=== PATIENT | male | born 1950 | race Caucasian/White ===

== ENCOUNTER 2018-07-30 06:53 | Inpatient (IN) ==
--- NOTE | 2018-07-18 08:48 | PAT Medication Instructions ---
Medication Instructions Date of Service July 18, 2018 Home Medications allopurinol 200 mg PO QAM biotin 10,000 mcg PO QAM cetirizine 10 mg PO DAILY PRN cholecalciferol (vitamin D3) [Vitamin D3] 5,000 unit PO QAM fenofibrate 160 mg PO QAM gabapentin 300 mg PO TID ibuprofen [Advil] 400 mg PO QID PRN multivitamin 1 tab PO QAM potassium 99 mg PO QAM ranitidine HCl 150 mg PO DAILY PRN ASK your surgeon for instructions ibuprofen [Advil] 400 mg PO QID PRN STOP taking 2 weeks before surgery (or as soon as possible if surgery is within 2 weeks) biotin 10,000 mcg PO QAM STOP taking 24 hours before surgery fenofibrate 160 mg PO QAM DO NOT take the morning of surgery cetirizine 10 mg PO DAILY PRN cholecalciferol (vitamin D3) [Vitamin D3] 5,000 unit PO QAM multivitamin 1 tab PO QAM potassium 99 mg PO QAM ranitidine HCl 150 mg PO DAILY PRN Take morning of surgery With a small sip of water, OTHERWISE NOTHING TO EAT OR DRINK AFTER MIDNIGHT: allopurinol 200 mg PO QAM gabapentin 300 mg PO TID Take evening before surgery gabapentin 300 mg PO TID Other Notes If you have any questions please call us at [phone] or [phone] or [phone] or [phone]
--- NOTE | 2018-07-18 14:29 | Anesthesiology Consultation ---
Date of Service July 18, 2018 Assessment & Plan (1) Encounter for pre-operative examination: Chest CT noted coronary artery calcification and generalized small airway disease with bronchial wall thickening. Reviewed with Dr. Sal; given patient's good functional status and PMHX, okay to proceed with surgery as scheduled without further testing/evaluation. Patient will followup postoperatively with PCP regarding chest CT findings at their discretion (PCP aware/has report). Chart Review Chart Review: Acceptable Risk for Surgery and Patient seen in Pre Admission Testing Teaching & Discussion Pre-Anesthesia Teaching/Discussion Notes: Instructed NPO after midnight before surgery,except medications with 15 cc of water. Medication instructions provided according to the PAT guidelines. History Surgery Operation Date: 07/30/18 09:05 Proposed Procedures p L3-S1 Removal of Hardware, L2-L3 Decompression and Fusion, Spinal Cord Monitoring - Matteo Valladares, Height/Weight Height: 5 ft 6.5 in Weight: 88.5 kg Allergies Allergy/AdvReac Type Severity Reaction Status Date / Time pollen extracts Allergy Unknown DUST, Verified 07/17/18 14:57 TREES-ITCHY EYES AND RUNNY NOSE Medications Home Medications Medication Instructions Recorded Confirmed Last Taken allopurinol 200 mg PO QAM 07/17/18 07/17/18 Unknown biotin 10,000 mcg PO QAM 07/17/18 07/17/18 Unknown cetirizine 10 mg PO DAILY PRN 07/17/18 07/17/18 Unknown cholecalciferol (vitamin D3) 5,000 unit PO QAM 07/17/18 07/17/18 Unknown [Vitamin D3] fenofibrate 160 mg PO QAM 07/17/18 07/17/18 Unknown gabapentin 300 mg PO TID 07/17/18 07/17/18 Unknown ibuprofen [Advil] 400 mg PO QID PRN 07/17/18 07/17/18 Unknown multivitamin 1 tab PO QAM 07/17/18 07/17/18 Unknown potassium 99 mg PO QAM 07/17/18 07/17/18 Unknown ranitidine HCl 150 mg PO DAILY PRN 07/17/18 07/17/18 Unknown Past Medical History Medical History Chronic back pain B/L LE RADICULOPATHY Gout Graves disease HX RESOLVED S/P TREATMENT; EUTHYROID X 9+ YEARS PER PATIENT Hyperlipidemia Obesity Exercise / Class Metabolic Activity II 4-5 Yardwork/Stairs/Walk up hill Past Family History Family History Grandmother (Maternal) Family history of diabetes mellitus Mother Family history of diabetes mellitus Past Surgical History Surgical History Fusion of spine LUMBAR History of appendectomy History of arthroscopy RIGHT SHOULDER History of colonoscopy History of hand surgery R/L TRIGGER THUMBS Past Anesthesia History No Hx of Anesthesia Complications and No Family Hx of Anesthesia Complications History of PONV No Hx of PONV and No Hx of Motion Sickness Social History Smoking Status: Former smoker Do You Dip or Chew Tobacco: No Smoking End Date: QUIT 17 YEARS AGO Hx Alcohol Use: Yes Alcohol type: beer alcohol intake frequency: a few times a week Hx Substance Use: No Review of Systems Patient denies chest pain, shortness of breath, dyspnea on exertion, cough, wheezing, palpitations. Physical Exam Vital Signs VITALS BP 119/71 P 68 TEMP 98.5 SP02 97%RA RESP 18 PHYSICAL Full neck and c-spine range of motion. Full TMJ range of motion. TMD 3 finger breaths Mallampati Score 2 Dentition: partial upper Lungs: clear throughout to auscultation Cardiac: regular rate and rhythm, no murmurs noted Spine: normal Carotid arteries: negative bruit Extremities: no edema Testing Laboratory Results 07/18/18 14:40 07/18/18 14:40 07/18/18 07/18/18 14:40 14:40 PT 10.5 INR 1.0 APTT 22.9 Urine Color Yellow Urine Appearance Clear Urine pH 7.0 Ur Specific [place] 1.012 Urine Protein Negative Urine Glucose (UA) Negative Urine Ketones Negative Urine Nitrite Negative Ur Leukocyte Esterase Negative 07/18/18 T&S A+Ab- Electrocardiogram Date: 07/18/18 Findings: + NSR @ (62) Chest X-Ray Date: 07/18/18 2.1 cm right suprahilar density. Artifact is favored however a pulmonary nodule cannot be excluded and a chest CT is recommended. No acute cardiopulmonary findings. (subsequent chest CT done 07/24/18*) Other Testing Chest CT: 07/24/18: no suspicious lung nodule or mass. Hepatic steatosis noted. Coronary artery calcification. RUL scar or atelectasis. There is generalized small airway disease with bronchial wall thickening.
--- NOTE | 2018-07-18 15:00 | XRay Report ---
XR chest Pre-admission PA/Lat CLINICAL HISTORY: Preoperative evaluation. COMPARISON STUDY: Chest radiograph October 03, 2014. FINDINGS: Lung volumes are normal. There is no consolidation or evidence for pulmonary edema. Cardiac size is normal. Mediastinal contours are normal. There is no pneumothorax or pleural effusion. A 2.1 cm right suprahilar density is noted. This is probably artifactual. IMPRESSION: 1. 2.1 cm right suprahilar density. Artifact is favored however a pulmonary nodule cannot be excluded and a chest CT is recommended. 2. No acute cardiopulmonary findings. Electronically signed by: Martin Calderon M.D. 07/18/2018 2:59 PM
[2018-07-18 15:35] LABS: Basophils # (auto) 0.06 K/uL (0-0.2); Basophils % (auto) 0.7 %; Eosinophils # (auto) 0.08 K/uL (0-0.5); Hematocrit (blood only) 37.9 % (42-52); Hemoglobin 13.8 g/dL (14.0-18.0); Immature Granulocytes # (auto) 0.03 K/uL (0.00-0.02); Immature Granulocytes % (auto) 0.4 %; Lymphocytes # (auto) 3.43 K/uL (1.2-3.4); Lymphocytes % (auto) 41.7 %; Mean Corpuscular Hgb Conc 36.4 g/dL (32-36); Mean Corpuscular Volume 83.1 fL (80-100); Mean Platelet Volume 9.7 fL (7.4-10.4); Monocytes # (auto) 0.55 K/uL (0.11-0.59); Monocytes % (auto) 6.7 %; Neutrophils # (auto) 4.07 K/uL (1.4-6.5); Neutrophils % (auto) 49.5 %; Platelet Count 331 K/uL (130-400); RDW Coefficient of Variation 13.8 % (11.5-14.5); RDW Standard Deviation 41.5 fL (36.4-46.3); Red Blood Count 4.56 M/uL (4.7-6.1); White Blood Count 8.22 K/uL (4.8-10.8)
[2018-07-18 15:42] LABS: BUN Creatinine Ratio 16.1 (10-20); Calcium 9.6 mg/dl (8.5-10.1); Est GFR (African American) 67.5; Est GFR (Non-African American) 58.2; Potassium 3.7 mmol/L (3.5-5.1)
[2018-07-18 15:45] LABS: Appearance Urine Clear (Clear); Bilirubin Urine Negative (Negative); Blood Urine Negative (Negative); Color Urine Yellow; Glucose Urine UA Negative (Negative); Ketones Urine Negative (Negative); Leukocyte Esterase Urine Negative (Negative); Nitrite Urine Negative (Negative); Protein Urine Negative (Negative); Specific Gravity Urine 1.012 (1.000-1.030); Urobilinogen Urine Negative (Negative)
[2018-07-18 15:53] LABS: Partial Thromboplastin Ratio 0.8; Partial Thromboplastin Time 22.9 Seconds (21.0-31.0); Prothrombin Time 10.5 Seconds (9.0-12.0)
[~2018-07-30 06:53] MED LIST: ACETAMINOPHEN 500 MG TAB PO SCH; CEFAZOLIN 2000MG 2,000 MG/15 ML SYR IV SCH; CeleBREX 200 MG CAP PO SCH; GABAPENTIN 300 MG PO SCH; LR 15ML/HR IV SCH
[2018-07-30] MEDS ORDERED: DEXAMETHASONE SOD INJ 4 MG/ML VIAL ONE (08:11)
[2018-07-30] MEDS ORDERED: PROPOFOL IV EMULSION 10 MG/ML 20 ML VIAL IV ONE (08:11)
[2018-07-30] MEDS ORDERED: ONDANSETRON INJ 2 MG/ML 2 ML VIAL ONE (08:11)
[2018-07-30] MEDS ORDERED: LIDOCAINE HCL 2% 2 ML VIAL/AMP(20MG/ML) INFIL ONE (08:11)
[2018-07-30] MEDS ORDERED: fentaNYL citrate 100 MCG/2 ML VIAL ONE ×2 (08:12→10:29)
[2018-07-30] MEDS ORDERED: MIDAZOLAM HCL 1 MG/ML 2ML VIAL ONE (08:12)
[2018-07-30] MEDS ORDERED: HYDROmorphone INJ 2 MG/ML SYR/VIAL ONE (08:12)
[2018-07-30] MEDS ORDERED: ePHEDrine sulfate 50 MG/ML AMP IV PRN (08:32)
[2018-07-30] MEDS ORDERED: ONDANSETRON INJ 2 MG/ML 2 ML VIAL IV PRN ×2 (08:32→12:52)
[2018-07-30] MEDS ORDERED: PROMETHAZINE HCL 6.25 MG in SODIUM CHLORIDE 0.9% 50 ML IV PRN (08:32)
[2018-07-30] MEDS ORDERED: fentaNYL citrate 100 MCG/2 ML VIAL IV PRN (08:32)
[2018-07-30] MEDS ORDERED: HYDROmorphone INJ 2 MG/ML SYR/VIAL IV PRN (08:32)
[2018-07-30] MEDS ORDERED: ATROPINE SULFATE 0.1 MG/ML 10ML SYR IV PRN (08:32)
--- NOTE | 2018-07-30 08:48 | History & Physical Bridge Note ---
Date of Service July 30, 2018 History & Physical Bridge Note I have examined the patient, reviewed the History & Physical and in the interval since the performance of the History & Physical I have noted the following changes of clinical significance: no changes noted
--- NOTE | 2018-07-30 08:49 | History & Physical Report ---
Date of Service July 30, 2018 Assessment & Plan (1) Neurogenic claudication due to lumbar spinal stenosis: Hardware removal L3-S1 decompression and fusion L2-3 Present on Admission?: Yes History of Present Illness Chief Complaint: Back and leg pain Primary Care Provider: SANJU SUMNER This is a 68-year-old male well-known to me that presents with chronic persistent back and leg pain. After failing extensive course of nonoperative care is here for surgical intervention. Allergies Allergy/AdvReac Type Severity Reaction Status Date / Time pollen extracts Allergy Unknown DUST, Verified 07/30/18 07:38 TREES-ITCHY EYES AND RUNNY NOSE Home Medications Home Medications Medication Instructions Recorded Confirmed Type allopurinol 200 mg PO QAM 07/17/18 07/30/18 History biotin 10,000 mcg PO QAM 07/17/18 07/30/18 History cetirizine 10 mg PO DAILY PRN 07/17/18 07/30/18 History cholecalciferol (vitamin D3) 5,000 unit PO QAM 07/17/18 07/30/18 History [Vitamin D3] fenofibrate 160 mg PO QAM 07/17/18 07/30/18 History gabapentin 300 mg PO TID 07/17/18 07/30/18 History ibuprofen [Advil] 400 mg PO QID PRN 07/17/18 07/30/18 History multivitamin 1 tab PO QAM 07/17/18 07/30/18 History potassium 99 mg PO QAM 07/17/18 07/30/18 History ranitidine HCl 150 mg PO DAILY PRN 07/17/18 07/30/18 History Past Med/Surg History Medical History Chronic back pain B/L LE RADICULOPATHY Gout Graves disease HX RESOLVED S/P TREATMENT; EUTHYROID X 9+ YEARS PER PATIENT Hyperlipidemia Obesity Surgical History Fusion of spine LUMBAR History of appendectomy History of arthroscopy RIGHT SHOULDER History of colonoscopy History of hand surgery R/L TRIGGER THUMBS Family History Grandmother (Maternal) Family history of diabetes mellitus Mother Family history of diabetes mellitus Social History Preferred Language: Yi Communication Ability: Effective Property Supervisor Required: No Beliefs That Will Affect Care: None Current Living Situation: Spouse Other Information That Helps Us Care for You: No Feels Safe at Home: Yes Safety Concerns: Feels Safe At This Time Smoking Status: Former smoker Do You Dip or Chew Tobacco: No Smoking End Date: QUIT 17 YEARS AGO Second Hand Exposure: Yes (DAILY-SPOUSE SMOKES) Hx Alcohol Use: Yes Alcohol type: beer Hx Substance Use: No Physical Exam Physical Exam: Patient is alert and oriented neurologically intact. Results & Data Vital Signs (Past 12 Hours) Vital Signs Temp Pulse Resp BP Pulse Ox 07/30/18 07:43 36.9 C 69 18 139/86 98
[2018-07-30] MEDS ORDERED: BUPIVACAINE/EPINEPHRINE 0.5% MPF 1:200,000 30 ML VIAL ONE (08:55)
[2018-07-30] MEDS ORDERED: BACITRACIN INJ 50,000 UNIT VIAL ONE (08:55)
[2018-07-30] MEDS ORDERED: THROMBIN FOR SOLN 20000 UNIT KIT ONE (09:44)
[2018-07-30] MEDS ORDERED: FLOSEAL HEMOSTATIC MATRIX 10ML TOP ONE (09:45)
[2018-07-30] MEDS ORDERED: LARYING-O-JET KIT (LTA) ONE (09:49)
[2018-07-30] MEDS ORDERED: NEOSTIGMINE METHYLSULFATE 1 MG/ML 10ML VIAL ONE (11:03)
[2018-07-30] MEDS ORDERED: GLYCOPYRROLATE 0.2 MG/ML VIAL ONE (11:03)
--- NOTE | 2018-07-30 11:32 | Operative Report ---
Post Operative Report Pre & Post Diagnosis Operation Date: 07/30/18 09:05 Pre-Op Diagnosis: Lumbar spinal stenosis with neurogenic claudication Post-Op Diagnosis: Same Procedure Operation Date: 07/30/18 09:05 Actual Procedures #1 removal of posterior segmental instrumentation L3-4 L4-5 L5-S1 per #2 exploration of fusion L3-4 L4-5 L5-S1. #3 lumbar decompression with bilateral medial facetectomies and foraminotomies L1-L2 3. #4 posterior spinal fusion L2- 3. #5 placement posterior instrumentation L2-3. #6 interbody fusion L2-3. #7 placement of peek cage 11 x 22 mm at L2-3. #8 placement of local autograft in the posterior lateral gutters. #9 placement of infuse collagen sponge, mass graft in the posterior lateral gutters and ostial amp in the interbody space. Surgeon Matteo Valladares DO Assembler Installer General Orin Shepard Estimated Blood Loss 200 Findings Consistent with Post-Op Diagnosis Specimens None Indications This is a 68-year-old male well-known to me that presents with above-mentioned diagnosis after failing extensive course of nonoperative care like to undergo the above-mentioned procedure. Description of Procedure Patient was met with identified and informed consent obtained. Patient was then taken to the operative suite underwent intubation and placed in a prone position the Davion table on top of the Jorge L frame. All bony prominences well-padded eyes inspected to ensure no external pressure placed upon the peer at this point the lumbar spine was prepped and draped in normal sterile fashion. Sharp dissection with the assistance of Bovie cautery was performed down to and exposing the lamina transverse processes of L2 and instrumentation L3-L4-L5 S1 bilaterally. I then proceeded to remove the hardware bilaterally explore the fusion mass noting to be intact. And then performed a complete laminectomy of L2 partial laminectomy of L3 including bilateral medial facetectomies foraminotomies addressing severe stenosis. Pedicle screws were then placed in L2 and L3 bilaterally with assistance of fluoroscopy and appropriately size lanie placed by way of a transforaminal approach and left complete discectomy was performed in plate graded to subcortical being bone and a 11 x 22 mm peek cage filled with osteo-amp bone graft tapped in position. The rods were then compressed locked in final position bilaterally. The transverse processes of L2 and L3 burred to subcortical being bone. Infuse collagen sponge master graft local autograft placed in the posterior lateral gutters. 15 round JASPER drain inserted. The incision was then closed with 1 Vicryl in the fascia 2-0 Vicryl subcutaneous and 4 Monocryl for final skin closure. Steri-Strip sterile dressings placed. Patient will continue to PACU stable condition. Please note Orin Shepard present at the entire procedure involved the patient positioning complex portions of the surgery and final skin closure. Lastly spinal cord monitoring was utilized our procedure no changes noted. I attest to the content of the Intraoperative Record and any orders documented therein. Any exceptions are noted below.
--- NOTE | 2018-07-30 11:37 | Fluoroscopy Report ---
FL lumbar spine 2-3V CLINICAL HISTORY: L3-S1 REMOVAL OF HARDWARE, L2-L3 DECOMPRESSION AND FUSION COMPARISON STUDY: 12/29/2014 FLUOROSCOPY TIME: 9 seconds. NUMBER OF FLUOROSCOPIC IMAGES: 2 FINDINGS: There are postsurgical changes of a discectomy and interbody fusion at the L2-3 level. Post erior spinal pedicle screws and adjoining rods are visualized. There is minimal retrolisthesis of L2 on L3. There is evidence for prior L5-S1 discectomy and interbody fusion. The L3, L4, and L5 pedicle screws have been removed in the interim. IMPRESSION: Intraoperative fluoroscopic spot images with postsurgical changes as described above. Electronically signed by: Fernando Potter M.D. 07/30/2018 11:35 AM
[2018-07-30] MEDS ORDERED: BISACODYL 10 MG SUPP PR PRN (12:52)
[2018-07-30] MEDS ORDERED: DO NOT ADMINISTER FLU VACCINE PRN (12:52)
[2018-07-30] MEDS ORDERED: MAGNESIUM HYDROXIDE SUSP 30 ML UDC PO PRN (12:52)
[2018-07-30] MEDS ORDERED: FAMOTIDINE 20 MG TAB PO PRN (12:52)
[2018-07-30] MEDS ORDERED: HYDROmorphone INJ 0.5 MG/0.5 ML SYR IV PRN (12:52)
[2018-07-30] MEDS ORDERED: ACETAMINOPHEN 1,000 MG/100 ML VIAL IV PRN (12:52)
[2018-07-30] MEDS ORDERED: DO NOT ADMINISTER PNEUMOCOCCAL VACCINE PRN (12:52)
[2018-07-30] MEDS ORDERED: ONDANSETRON 4 MG TAB PO PRN (12:52)
[2018-07-30] MEDS ORDERED: LORazepam 0.5 MG TAB PO PRN (12:52)
[2018-07-30] MEDS ORDERED: TRAMADOL HCL 50 MG TABLET PO PRN (12:52)
[2018-07-30] MEDS ORDERED: ALUMINUM/MAGNESIUM SUSP 30 ML UDC PO PRN (12:52)
[2018-07-30] MEDS ORDERED: METOCLOPRAMIDE HCL INJ 5 MG/ML 2 ML VIAL IV PRN (12:52)
[2018-07-30] MEDS ORDERED: ACETAMINOPHEN 500 MG TAB PO PRN (12:52)
[2018-07-30] MEDS ORDERED: SOD PHOSPHATE/SOD BIPHOSPHATE ENEMA 132 ML BTL PR PRN (12:52)
[2018-07-30] MEDS ORDERED: LORazepam 0.5 MG/1 ML VIAL IV PRN (12:52)
[2018-07-30] MEDS ORDERED: PROMETHAZINE HCL 12.5 MG in SODIUM CHLORIDE 0.9% 50 ML IV PRN (12:52)
--- NOTE | 2018-07-30 14:11 | Anesthesiology Progress Note ---
Date of Service July 30, 2018 Anesthesia Post Procedure Vital Signs Vital Signs: Temp Pulse Resp BP Pulse Ox 07/30/18 13:22 70 16 117/74 93 07/30/18 13:01 62 16 108/70 92 07/30/18 12:40 36.4 C L 69 16 106/66 97 07/30/18 12:30 73 16 126/56 L 99 07/30/18 12:20 79 14 117/62 98 07/30/18 12:10 72 14 111/68 98 07/30/18 12:00 83 15 127/70 100 07/30/18 11:50 36.2 C L 86 13 139/76 100 07/30/18 07:43 36.9 C 69 18 139/86 98 Transfer of Care Handoff Completed per policy Notes Mental Status: alert / awake / arousable Patient Amnestic to Procedure: Yes Nausea / Vomiting: adequately controlled Pain: adequately controlled Airway Patency, RR, SpO2: stable & adequate BP & HR: stable & adequate Hydration State: stable & adequate Anesthetic Complications: no major complications apparent
[2018-07-30] MEDS: LACTATED RINGER'S 1,000 ML IV SCH ×2 (14:15→20:49)
[2018-07-30] MEDS: KETOROLAC TROMETHAMINE 15 MG/ML VIAL IV SCH ×2 (14:16→20:54)
[2018-07-30] MEDS: GABAPENTIN 300 MG CAP PO SCH ×2 (14:32→20:55)
[2018-07-30] MEDS: FENOFIBRATE ~ ORDER AWAITING ACTION SCH ×2 (16:19→23:04)
[2018-07-30] MEDS: OXYCODONE HCL IR 5 MG TAB (IMMEDIATE RELEASE) PO PRN ×2 (16:23→22:15)
[2018-07-30] MEDS: CEFAZOLIN 2000MG 2,000 MG/15 ML SYR IV SCH (18:41)
[2018-07-30] MEDS: DOCUSATE SODIUM/SENNA 50/8.6MG TAB PO SCH (20:55)
[2018-07-31] MEDS: CEFAZOLIN 2000MG 2,000 MG/15 ML SYR IV SCH (03:00)
[2018-07-31] MEDS: KETOROLAC TROMETHAMINE 15 MG/ML VIAL IV SCH ×2 (03:00→08:57)
[2018-07-31] MEDS: LACTATED RINGER'S 1,000 ML IV SCH (03:54)
[2018-07-31] MEDS: POLYETHYLENE (MIRALAX) 17 GM PACK PO SCH ×4 (05:32→23:50)
[2018-07-31] MEDS: OXYCODONE HCL IR 5 MG TAB (IMMEDIATE RELEASE) PO PRN ×3 (05:38→16:39)
[2018-07-31 06:36] LABS: Hematocrit (blood only) 30.8 % (42-52); Hemoglobin 10.9 g/dL (14.0-18.0); Immature Granulocytes # (auto) 0.06 K/uL (0.00-0.02); Immature Granulocytes % (auto) 0.4 %; Lymphocytes # (auto) 1.71 K/uL (1.2-3.4); Lymphocytes % (auto) 10.5 %; Mean Corpuscular Hgb Conc 35.4 g/dL (32-36); Mean Corpuscular Volume 83.9 fL (80-100); Mean Platelet Volume 9.6 fL (7.4-10.4); Monocytes # (auto) 1.32 K/uL (0.11-0.59); Monocytes % (auto) 8.1 %; Neutrophils # (auto) 13.16 K/uL (1.4-6.5); Platelet Count 241 K/uL (130-400); RDW Coefficient of Variation 13.8 % (11.5-14.5); Red Blood Count 3.67 M/uL (4.7-6.1); White Blood Count 16.25 K/uL (4.8-10.8)
[2018-07-31 07:08] LABS: BUN Creatinine Ratio 13.3 (10-20); Creatinine Clr Calc Pharmacy 56.8 ml/min; Est GFR (African American) 65.6; Est GFR (Non-African American) 56.6; Potassium 3.9 mmol/L (3.5-5.1)
[2018-07-31] MEDS: FENOFIBRATE ~ ORDER AWAITING ACTION SCH ×3 (08:53→23:50)
[2018-07-31] MEDS: ALLOPURINOL 100 MG TAB PO SCH (08:53)
[2018-07-31] MEDS: MULTIVITAMIN TAB PO SCH (08:53)
[2018-07-31] MEDS: GABAPENTIN 300 MG CAP PO SCH ×3 (08:53→20:07)
[2018-07-31] MEDS ORDERED: NON-FORMULARY MEDICATION (Potassium 99 MG) PO SCH (09:00)
--- NOTE | 2018-07-31 09:18 | Anesthesiology Progress Note ---
Date of Service July 31, 2018 Anesthesia Post Procedure Vital Signs Vital Signs: Temp Pulse Pulse Pulse Resp BP BP 07/31/18 07:54 36.7 C 63 16 118/67 07/31/18 03:07 36.9 C 76 105/62 07/30/18 22:59 37.0 C 71 14 91/50 L 07/30/18 20:00 36.7 C 84 18 113/64 07/30/18 16:25 36.6 C 82 16 122/75 07/30/18 14:37 81 18 111/69 07/30/18 13:22 70 16 117/74 07/30/18 13:01 62 16 108/70 07/30/18 12:40 36.4 C L 69 16 106/66 07/30/18 12:30 73 16 126/56 L 07/30/18 12:20 79 14 117/62 07/30/18 12:10 72 14 111/68 07/30/18 12:00 83 15 127/70 07/30/18 11:50 36.2 C L 86 13 139/76 Pulse Ox 07/31/18 07:54 98 07/31/18 03:07 96 07/30/18 22:59 98 07/30/18 20:00 97 07/30/18 16:25 97 07/30/18 14:37 96 07/30/18 13:22 93 07/30/18 13:01 92 07/30/18 12:40 97 07/30/18 12:30 99 07/30/18 12:20 98 07/30/18 12:10 98 07/30/18 12:00 100 07/30/18 11:50 100 Pain Intensity Back: Pain Intensity: 5 Notes Mental Status: alert / awake / arousable Patient Amnestic to Procedure: Yes Nausea / Vomiting: adequately controlled Pain: improving with treatment Airway Patency, RR, SpO2: stable & adequate BP & HR: stable & adequate Anesthetic Complications: no major complications apparent
--- NOTE | 2018-07-31 09:24 | Orthopedic Progress Note ---
Date of Service July 31, 2018 Assessment & Plan (1) Neurogenic claudication due to lumbar spinal stenosis: This time will initiate physical therapy monitor his JASPER output anticipate discharge home in the next few days. Present on Admission?: Yes Subjective Patient's back pain is controlled leg symptoms markedly improved. Physical Exam Physical Exam: Patient appears very comfortable. Is excellent strength testing. Results & Data Vital Signs (Past 12 Hours) Vital Signs Temp Pulse Resp BP BP Pulse Ox 07/31/18 07:54 36.7 C 63 16 118/67 98 07/31/18 03:07 36.9 C 76 105/62 96 07/30/18 22:59 37.0 C 71 14 91/50 L 98
[2018-07-31] MEDS: DOCUSATE SODIUM/SENNA 50/8.6MG TAB PO SCH (20:07)
[2018-08-01] MEDS: OXYCODONE HCL IR 5 MG TAB (IMMEDIATE RELEASE) PO PRN ×5 (03:56→20:11)
[2018-08-01] MEDS: POLYETHYLENE (MIRALAX) 17 GM PACK PO SCH ×2 (05:04→11:51)
[2018-08-01] MEDS: ALLOPURINOL 100 MG TAB PO SCH (07:47)
[2018-08-01] MEDS: FENOFIBRATE ~ ORDER AWAITING ACTION SCH ×3 (07:47→23:21)
[2018-08-01] MEDS: MULTIVITAMIN TAB PO SCH (07:47)
[2018-08-01] MEDS: GABAPENTIN 300 MG CAP PO SCH ×3 (07:48→20:11)
--- NOTE | 2018-08-01 08:57 | Orthopedic Progress Note ---
Date of Service August 01, 2018 Assessment & Plan (1) Neurogenic claudication due to lumbar spinal stenosis: This time we will continue physical therapy monitor his JASPER output anticipate discharge home tomorrow. Present on Admission?: Yes Subjective Back pain is controlled leg symptoms improved. Physical Exam Physical Exam: Patient is able to sit up without difficulty. Is good strength testing. Appears comfortable. Results & Data Vital Signs (Past 12 Hours) Vital Signs Temp Pulse Resp BP Pulse Ox 08/01/18 06:37 37.2 C 86 16 145/81 H 96 07/31/18 23:52 146/78 H 07/31/18 22:51 37.0 C 73 16 150/70 H 96
[2018-08-01] MEDS: DOCUSATE SODIUM/SENNA 50/8.6MG TAB PO SCH (20:11)
[2018-08-02] MEDS: OXYCODONE HCL IR 5 MG TAB (IMMEDIATE RELEASE) PO PRN ×3 (00:10→08:52)
--- NOTE | 2018-08-02 08:22 | Discharge Summary ---
Date of Service August 02, 2018 Admission HPI Per Admitting Provider This is a 68-year-old male well-known to me that presents with chronic persistent back and leg pain. After failing extensive course of nonoperative care is here for surgical intervention. Principal Diagnosis Lumbar spinal stenosis with neurogenic claudication Discharge Data Allergies Allergy/AdvReac Type Severity Reaction Status Date / Time pollen extracts Allergy Unknown DUST, Verified 07/30/18 07:38 TREES-ITCHY EYES AND RUNNY NOSE Consultations 07/30/18 12:52 Consult Case Management - Discharge Planning Routine Procedures Performed Operation Date: 07/30/18 09:05 Actual Procedures p L2-L3 Decompression and Fusion, Spinal Cord Monitoring(Not Applicable) - Matteo Valladares DO s L3-S1 Removal of Hardware(Not Applicable) - Matteo Valladares DO Ordered Studies 07/30/18 07:00 FL fluoroscopy <1hr Routine FL lumbar spine 2-3V Routine Hospital Course (1) Neurogenic claudication due to lumbar spinal stenosis: Patient underwent lumbar decompression fusion tolerated as well as taken to the orthopedic for postoperative. Postop day 1 he was up and ambulate and nicely. He progressed to postop day #2. Postop day #3 JASPER drain decreasing appropriately pain well controlled. Subsequently discharged home. Discharge orders and instructions can be found the chart for further review. Total Time Total Time Spent Total Time Spent (In Minutes): 10 minutes Discharge Plan Discharge Items Patient Disposition: Home - Self-Care Reason For Visit: LUMBAR SPINAL STENOSIS W/OUT NEUROGENIC CLAUDICATI Discharge Diagnosis: Lumbar spinal stenosis with neurogenic claudication Discharge Goals: Improve function Activity: Per 'Additional Instructions' section Non-emergency contact: Primary Care Provider Call non-emergency contact if: you have any medication questions Follow-up/Referrals: SANJU SUMNER D.O. [Primary Care Provider] - Diet: Regular Addtl Provider Instructions: ACTIVITY RECOMMENDATIONS: SELF CARE INSTRUCTIONS AFTER THORACIC/LUMBAR FUSIONS 1. You may walk to your tolerance. It is good exercise for your legs and back. Expect some back and intermittent leg aches and pains. 2. You may perform "counter-top" level activities (make a sandwich, mirta with a project, etc.). 3. No bending or lifting of more than 10 pounds or back twisting of any nature (roll like a log when turning in bed). 4. You may ride in a car for 20-30 minutes at a time. No driving until after your first visit with your doctor. 5. Frequent changes of position and restricting sitting to 30 minutes at a time will help limit the amount of back spasms and stiffness you may experience. 6. You may discontinue the use of ambulatory aids (cane, crutches, etc.) once your strength and confidence allow. 7. You may spinning supervisor the shower and let water strike your incision when you arrive home at least once daily. Do not take a tub bath, sit in a hot tub or go into a swimming pool until after your first recheck in the office. SPECIAL CARE INSTRUCTIONS: VERY IMPORTANT TO READ AND REVIEW A. Your surgical incision has been closed with a cosmetic suture under the skin that will dissolve in about 6 weeks. In 14 days, you can use a pair of clean scissors and cut the suture that is left outside of the skin at the ends of your incision. 1. The small skin tapes can be removed 7 days after surgery if they have not fallen off by that point. 2. You may keep the wound open to air as much as possible to promote healing after post-op day number 5 unless told otherwise by your doctor. 3. If you think the wound looks like it is becoming infected (redness or worsening drainage) and/or you are experiencing fever, chill or worsening back pain and muscle spasms, contact the office so that we may evaluate you as soon as possible. B. Complications are uncommon, but please contact us if you have any signs or symptoms of: 1. wound infection (fever higher than 102.5 degrees F, redness, separation of wound, drainage, or increasing pain from the incision) 2. blood clots in legs (pain, swelling, redness and warmth in legs) 3. urinary tract infection (fever higher than 102.5 degrees F, burning upon urination or increased frequency of urination) 4. nerve problems (inability to walk on your toes or heels, numbness, loss of bowel or bladder control) 5. any other symptoms that concern you C. Please call the office at if you have any concerns or questions about your operation or recovery. D. No smoking! Smoking drastically decreases the chance of a solid fusion. E. Do not take any anti-inflammatory medications (Indocin, Advil, Motrin, Aspirin, Naprosyn, etc.) as these may inhibit the chance of a solid fusion. Tylenol is okay to take for pain. MANAGING PAIN AFTER SPINAL SURGERY 1. Narcotic medication is intended for short-term use and will be provided for surgical pain. Surgical pain usually lasts for a period of 4-6 weeks. Narcotic medication includes Percocet, Vicodin, Darvocet, Tylenol #3 or Lortab. 2. Longer-term pain is more appropriately treated with non-narcotic medication such as Tylenol ES. 3. Muscle spasm is not appropriately treated with narcotics. Muscle relaxers such as Soma, Flexeril or Skelaxin can be used along with Tylenol ES. 4. Remember that we all live with some "aches and pains". This is not unusual or uncommon after an injury or as we get older. a. Back pain is expected and may include muscle spasms for 4 to 6 weeks after surgery. The pain should gradually improve. If the pain worsens for no apparent reason, please contact the office. b. Intermittent leg pain may also be experienced and should not be concerned about unless it worsens for no apparent reason. If so, please contact the office. 5. We will provide appropriate medication within the normal guidelines of their prescribed use. We will also be very cautious and aware of potential abuse and extended duration of patients' medication needs. a. Pain medications are for your comfort and to assist with sleep and rest so that the tissue can heal. They are not provided in order to return to normal activity and should not be used through the day. To do so or worsening pain at night can result from ongoing tissue damage and development of tolerance to the prescribed medicine. 6. Please allow 2-3 days to process refills. Prescriptions will not be mailed but must be picked up at the office. FOLLOW UP VISIT: Keep your scheduled follow-up appointment. Any questions, please call the office at . Prescriptions: New tramadol 50 mg Tablet 50 mg PO Q4H PRN (Reason: Pain, Moderate) Qty: 30 RF: 0 oxycodone 5 mg Tablet 5 mg PO Q4H PRN (Reason: Pain, Severe) Qty: 30 RF: 0 Continued multivitamin Tablet 1 tab PO QAM RF: 0 cetirizine 10 mg Tablet 10 mg PO DAILY PRN (Reason: Allergy Symptoms) RF: 0 allopurinol 100 mg Tablet 200 mg PO QAM RF: 0 ranitidine HCl 150 mg Tablet 150 mg PO DAILY PRN (Reason: Acid Reflux) RF: 0 ibuprofen [Advil] 200 mg Tablet 400 mg PO QID PRN (Reason: Pain) RF: 0 fenofibrate 160 mg Tablet 160 mg PO QAM RF: 0 biotin 10,000 mcg Capsule 10,000 mcg PO QAM RF: 0 cholecalciferol (vitamin D3) [Vitamin D3] 5,000 unit Tablet 5,000 unit PO QAM RF: 0 potassium 99 mg Tablet 99 mg PO QAM RF: 0 gabapentin 300 mg Capsule 300 mg PO TID RF: 0 Stand-Alone Forms: [facility] Discharge Orders: Discharge Order (Routine); Ordered 08/02/18 Ordered By: Matteo Valladares Admission Data Admit Date/Time: 07/30/18 11:37 Attending Provider: Matteo Valladares Admit Provider: Matteo Valladares Primary Care Provider: SANJU SUMNER Service: Surgical Services
[2018-08-02] MEDS: GABAPENTIN 300 MG CAP PO SCH (08:26)
[2018-08-02] MEDS: FENOFIBRATE ~ ORDER AWAITING ACTION SCH (08:26)
[2018-08-02] MEDS: ALLOPURINOL 100 MG TAB PO SCH (08:27)
[2018-08-02] MEDS: MULTIVITAMIN TAB PO SCH (08:27)
== END 2018-08-02 10:41 | disposition home or self-care (01) ==
LOC: ASU 06:53 → 3E 11:37